=== PATIENT | male | born 1975 | race African-American/Black ===

== ENCOUNTER 2016-11-28 00:01 | Emergency (ER) | payer SELFPAY ==
[~2016-11-28 00:01] MED LIST: ATIVAN1 M2 PO; IBUPROFEN600 M1 PO
== END 2016-11-28 01:41 ==
LOC: EDMED 00:01
DX: S46.911A Strain of unspecified muscle, fascia and tendon at shoulder and upper arm level, right arm, initial encounter (principal); M54.31 Sciatica, right side; X58.XXXA Exposure to other specified factors, initial encounter
CPT/HCPCS: J1885